=== PATIENT | male | born 1950 | race Caucasian/White ===

== ENCOUNTER 2017-11-28 13:57 | Inpatient (IN) | payer OTHER, MEDICARE ==
[~2017-11-28] VITALS: Ht 177.8 cm; Wt 123.9 kg
[2017-11-28] MEDS ORDERED: AZITHROMYCIN 250 MG TAB PO STA (16:34)
[2017-11-28] MEDS ORDERED: POTASSIUM CHLORIDE 10 MEQ TABCR PO ONE (16:45)
[2017-11-28] MEDS ORDERED: CEFTRIAXONE SOD 1 GM VIAL IV ONE (16:45)
[2017-11-28 20:00] VITALS: BP 163/75
[2017-11-28] MEDS ORDERED: CITRACAL + D E1 EACH (20:48)
[2017-11-28] MEDS ORDERED: PRILOSEC OTC20 MG (20:48)
[2017-11-28] MEDS ORDERED: GLIMEPIRIDE2 MG PO (20:48)
[2017-11-28] MEDS ORDERED: CALCITRIOL0.25 MCG PO (20:48)
[2017-11-28] MEDS ORDERED: HYDROCORTISONE10 MG PO (20:48)
[2017-11-28] MEDS ORDERED: ATENOLOL50 MG (20:48)
[2017-11-28] MEDS ORDERED: JANUMET 50-1,01 EACH (20:48)
[2017-11-28] MEDS ORDERED: DESMOPRESSIN A0.1 MG (20:48)
[2017-11-28] MEDS ORDERED: KLOR-CON 1010 MEQ (20:48)
[2017-11-28] MEDS ORDERED: MAGNESIUM OXID400 MG PO (20:48)
[2017-11-28] MEDS ORDERED: MAGNESIUM SULFATE 2GM/50ML 50 ML IV ONE (22:45)
[2017-11-28] MEDS ORDERED: ACETAMINOPHEN325 M1 PO (23:02)
[2017-11-28] MEDS ORDERED: ACETAMINOPHEN 325 MG TAB ONE (23:08)
[2017-11-28] MEDS ORDERED: SODIUM CHLORIDE 0.9% 250ML 250 ML ONE (23:17)
[2017-11-28] MEDS ORDERED: ACETAMINOPHEN 325 MG TAB PO PRN (23:45)
[2017-11-29] VITALS (8 sets, daily range): BP systolic 113–146; BP diastolic 46–83
[2017-11-29] MEDS ORDERED: MAGNESIUM SULFATE 2GM/50ML 50 ML IV ONE (02:45)
[2017-11-29 06:47] LABS: ANION GAP 14.7 mmol/L (8-16); BLOOD UREA NITROGEN < 5 mg/dL (7-26); CARBON DIOXIDE 23 mmol/L (22-29); CHLORIDE 102 mmol/L (98-107); CREATININE, SERUM 0.98 mg/dL (0.72-1.25); EST GLOMERULAR FILTRATION RATE > 60 ML/MIN (60-); GLUCOSE 122 mg/dL (74-118); MAGNESIUM 1.7 MG/DL (1.3-2.1); SODIUM 137 mmol/L (136-145)
[2017-11-29 07:00] LABS: BUN/CREATININE RATIO 5 (6-25)
[2017-11-29 07:01] LABS: CALCIUM 6.4 mg/dL (8.4-10.2); POTASSIUM 2.7 mmol/L (3.5-5.1)
[2017-11-29] MEDS ORDERED: HYDROCORTISONE 10 MG TAB PO SCH (09:00)
[2017-11-29] MEDS ORDERED: GLIMEPIRIDE 2 MG TAB PO SCH (09:00)
[2017-11-29] MEDS: ATENOLOL 50 MG TAB PO SCH (09:06)
[2017-11-29] MEDS: MAGNESIUM OXIDE 400 MG TAB PO SCH (09:06)
[2017-11-29] MEDS: CALCITRIOL 0.25 MCG CAP PO SCH (09:06)
[2017-11-29] MEDS ORDERED: POTASSIUM CHLORIDE 20 MEQ TAB CR PO STA (09:12)
[2017-11-29] MEDS ORDERED: POTASSIUM CHLORIDE 20MEQ/100ML 100 ML IV ONE (09:15)
[2017-11-29] MEDS ORDERED: POTASSIUM CHLORIDE 20 MEQ TAB CR PO SCH ×2 (09:25→11:30)
[2017-11-29] MEDS ORDERED: CALCIUM GLUCONATE 10% INJ 4.65 MEQ in SODIUM CHLORIDE 0.9% 50ML 50 ML IV ONE (10:45)
[2017-11-29] MEDS: POTASSIUM CHLORIDE 20 MEQ TAB CR PO SCH ×3 (12:01→16:35)
[2017-11-29] MEDS: CEFEPIME HCL 1 GM VIAL IV SCH (13:03)
[2017-11-29 14:42] LABS: FREE T4 (FREE THYROXINE) 0.73 ng/dL (0.9-1.8); THYROID STIMULATING HORMONE 0.539 uIU/mL (0.350-4.940)
--- NOTE | 2017-11-29 15:25 | Consultation ---
DATE OF CONSULTATION: November 29, 2017 ENDOCRINE CONSULTATION This is a patient of Dr. Baeza. Thank you very much for referring this patient. 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 Patient had a pituitary adenoma diagnosed about 4 years back. He underwent a transsphenoidal hypophysectomy and, according to the patient, he has mild diabetes insipidus and is on DDAVP. Patient also was started on hydrocortisone 30 mg a day recently. Patient came to the hospital with history of numbness and paresthesias, nausea and vomiting. He was diagnosed to have pneumonia. At the time of admission, his potassium was significantly low at 2.7, and his magnesium was low. The patient has also a known case of diabetes mellitus, type 2, on a combination of glimepiride and Janumet. PHYSICAL EXAMINATION GENERAL: Today, the patient is alert, awake, a little bit apprehensive. He is moderately overweight. VITALS: His heart rate is around 78. Blood pressure is 126/76 mmHg. HEENT: Essentially unremarkable. Thyroid is palpable. Clinically he is near euthyroid. CHEST: Bilateral vesicular breathing. He has mild bronchospasm. CARDIAC: 1st and 2nd heart sounds. There is no 3rd or 4th heart sound. Ejection systolic murmur grade 2/6. CLINICAL IMPRESSION: Status post transsphenoidal hypophysectomy for pituitary adenoma, hypopituitarism, pneumonia, electrolyte imbalance. Hypokalemia. PLAN: The plan at this time is to review the old records. Will do a serum ACTH and testosterone prolactin, and also continue the hydrocortisone, increase the dose to 20 mg twice daily. Thanks again for referring this patient. I will be following this patient with you. Job#: [id number] LCARA
[2017-11-29] MEDS: INSULIN LISPRO 100 UNIT/1 ML 3ML VIAL SQ SCH ×2 (16:30→21:00)
[2017-11-29] MEDS: HYDROCORTISONE 10 MG TAB PO SCH (16:35)
[2017-11-30] VITALS (7 sets, daily range): BP systolic 127–163; BP diastolic 67–79
[2017-11-30] MEDS: CEFEPIME HCL 1 GM VIAL IV SCH ×3 (00:54→23:50)
[2017-11-30 07:18] LABS: BASOPHILS % 0.5 % (0.0-1.0); EOSINOPHILS # (AUTO) 0.2 (0.0-0.4); EOSINOPHILS % 3.8 % (0.0-6.0); HEMOGLOBIN 9.7 g/dL (14.0-18.0); LYMPHOCYTES # (AUTO) 1.8 (1.0-3.2); LYMPHOCYTES % 28.7 % (18.0-39.1); MEAN CORPUSCULAR HEMOGLOBIN 20.5 pg (28-32); MEAN CORPUSCULAR HGB CONC 28.5 g/dL (31-35); MEAN CORPUSCULAR VOLUME 71.9 fL (81-99); MONOCYTES # (AUTO) 0.7 (0.2-0.8); MONOCYTES % 10.8 % (4.4-11.3); NEUTROPHILS # (AUTO) 3.5 (2.1-6.9); PLATELET COUNT 266 x10e3/uL (140-360); RED BLOOD COUNT 4.73 x10e6/uL (4.3-5.7); RED CELL DISTRIBUTION WIDTH 20.5 % (11.7-14.4)
[2017-11-30] MEDS: INSULIN LISPRO 100 UNIT/1 ML 3ML VIAL SQ SCH ×4 (07:30→21:56)
[2017-11-30 07:35] LABS: BLOOD UREA NITROGEN < 5 mg/dL (7-26); BUN/CREATININE RATIO 5 (6-25); CARBON DIOXIDE 23 mmol/L (22-29); CHLORIDE 108 mmol/L (98-107); CREATININE, SERUM 0.97 mg/dL (0.72-1.25); EST GLOMERULAR FILTRATION RATE > 60 ML/MIN (60-); GLUCOSE 130 mg/dL (74-118); SODIUM 140 mmol/L (136-145)
[2017-11-30 07:36] LABS: CALCIUM 6.8 mg/dL (8.4-10.2)
[2017-11-30 08:25] LABS: RBC MORPHOLOGY COMMENT NORMAL
[2017-11-30 08:26] LABS: ANISOCYTOSIS SLIG; PLATELET ESTIMATE ADEQUATE; PLATELET MORPHOLOGY COMMENT FEW LARGE; POIKILOCYTOSIS SLIGHT
[2017-11-30] MEDS: GLIMEPIRIDE 2 MG TAB PO SCH (08:53)
[2017-11-30] MEDS: ATENOLOL 50 MG TAB PO SCH (08:54)
[2017-11-30] MEDS: HYDROCORTISONE 10 MG TAB PO SCH ×2 (08:54→17:07)
[2017-11-30] MEDS: MAGNESIUM OXIDE 400 MG TAB PO SCH (08:54)
[2017-11-30] MEDS: CALCITRIOL 0.25 MCG CAP PO SCH (08:54)
[2017-11-30] MEDS: POTASSIUM CHLORIDE 20 MEQ TAB CR PO SCH (11:59)
[2017-11-30] MEDS ORDERED: POTASSIUM CHLORIDE 20 MEQ TAB CR PO STA (14:52)
--- NOTE | 2017-11-30 15:45 | Diagnostic Imaging Report ---
PROCEDURE: Frontal and lateral views of the chest. COMPARISON: None. INDICATIONS: PNEUMONIA FINDINGS: Lines/tubes: None. Lungs: Le patchy density in the left lung base posteriorly is most suggestive of subsegmental atelectasis; developing pneumonia is felt to be less likely proper clinical setting. Pleura: There is no pleural effusion or pneumothorax. Heart and mediastinum: The cardiac silhouette is moderately enlarged. Bones: No acute bony abnormality. IMPRESSION: 1. Left basilar atelectasis versus developing pneumonia in the proper clinical setting. Amy Hirsch M.D. Dictated by: Amy Hirsch M.D. on 11/30/2017 at 15:45 Electronically approved by: Amy Hirsch M.D. on 11/30/2017 at 15:45
[2017-11-30] MEDS ORDERED: SODIUM CHLORIDE 0.9% IV ONE (16:30)
[2017-11-30] MEDS ORDERED: CALCIUM GLUCONATE IV ONE (16:30)
[2017-11-30] MEDS: OYST-CAL-D 500MG TABLET PO SCH (17:07)
[2017-12-01] VITALS: BP 161/72
[2017-12-01 00:28] VITALS: BP 161/72
[2017-12-01 04:00] VITALS: BP 168/65
[2017-12-01] MEDS: INSULIN LISPRO 100 UNIT/1 ML 3ML VIAL SQ SCH ×2 (07:30→11:30)
[2017-12-01 07:59] VITALS: BP 156/80
[2017-12-01] MEDS: CALCITRIOL 0.25 MCG CAP PO SCH (08:56)
[2017-12-01] MEDS: HYDROCORTISONE 10 MG TAB PO SCH (08:56)
[2017-12-01] MEDS: OYST-CAL-D 500MG TABLET PO SCH (08:56)
[2017-12-01] MEDS: GLIMEPIRIDE 2 MG TAB PO SCH (08:56)
[2017-12-01] MEDS: ATENOLOL 50 MG TAB PO SCH (08:56)
[2017-12-01] MEDS: MAGNESIUM OXIDE 400 MG TAB PO SCH (08:56)
[2017-12-01] MEDS ORDERED: CALCIUM GLUCONATE 10% INJ 4.65 MEQ in SODIUM CHLORIDE 0.9% 50ML 50 ML IV ONE (09:00)
[2017-12-01 11:44] LABS: ANION GAP 12.5 mmol/L (8-16); BLOOD UREA NITROGEN < 5 mg/dL (7-26); CALCIUM 8.2 mg/dL (8.4-10.2); CARBON DIOXIDE 26 mmol/L (22-29); CHLORIDE 107 mmol/L (98-107); CREATININE, SERUM 0.93 mg/dL (0.72-1.25); EST GLOMERULAR FILTRATION RATE > 60 ML/MIN (60-); GLUCOSE 141 mg/dL (74-118); POTASSIUM 3.5 mmol/L (3.5-5.1); SODIUM 142 mmol/L (136-145)
[2017-12-01 11:46] LABS: BUN/CREATININE RATIO 5 (6-25)
[2017-12-01 12:08] VITALS: BP 153/78
[2017-12-01] MEDS ORDERED: POTASSIUM CHLORIDE 20 MEQ TAB CR PO ONE (12:15)
[2017-12-01] MEDS: CEFEPIME HCL 1 GM VIAL IV SCH (12:57)
[2017-12-02] MEDS ORDERED: CALCITRIOL 0.25 MCG CAP PO SCH (09:00)
== END 2017-12-01 13:33 | disposition home or self-care (01) | DRG 640 ==
LOC: FSED 13:57 → IMCU 18:46 → OBSVTOIN 11-30 09:05
DX: E83.51 Hypocalcemia (principal); J18.9 Pneumonia, unspecified organism; E23.0 Hypopituitarism; I10 Essential (primary) hypertension; E83.42 Hypomagnesemia; E87.6 Hypokalemia; E11.9 Type 2 diabetes mellitus without complications; Z28.82 Immunization not carried out because of caregiver refusal
CPT/HCPCS: 36415; 71046; 80048; 80053; 82024; 82330; 82948; 83518; 83735; 83970; 84146; 84402; 84439; 84443; 85025; 87400; 93005; 99284; G0378; J0610; J0692; J0696; J3480; J7050